=== PATIENT | female | born 1980 | race Caucasian/White ===

== ENCOUNTER 2021-02-20 22:03 | Emergency (ER) | payer OTHER ==
[~2021-02-20] VITALS: Ht 180.3 cm; Wt 100.9 kg
--- NOTE | 2021-02-20 22:16 | PHYS DOC ---
Adult General HPI HPI Patient is a 40-year-old female presents with a chief complaint of Covid vaccine adverse reaction. States she got her Coumadin dose this morning and shortly after got some hives on bilateral forearms, that are itching. States she did not take any medications or call her primary care physician. Denies any headache, changes in vision, pain or trouble swallowing, chest pain, shortness of breath, wheezing, abdominal pain, nausea, vomiting, diarrhea. Denies any numbness/weakness/tingling or trouble sitting, standing or walking. Review of Systems Review of Systems Review of systems otherwise unremarkable except noted in HPI Physical Exam Physical Exam Constitutional: Well developed, well nourished, no acute distress, non-toxic bijan earance. [] HENT: Normocephalic, atraumatic, bilateral external ears normal, oropharynx moist, no oral exudates, nose normal. [] Eyes: PERRLA, EOMI, conjunctiva normal, no discharge. [] Neck: Normal range of motion, no tenderness, supple, no stridor. [] Cardiovascular:Heart rate regular rhythm, no murmur [] Lungs & Thorax: Bilateral breath sounds clear to auscultation [] Abdomen: Bowel sounds normal, soft, no tenderness, no masses, no pulsatile masses. [] Skin: Urticarial rash on forearms Back: No tenderness, no CVA tenderness. [] Extremities: No tenderness, no cyanosis, no clubbing, ROM intact, no edema. [] Neurologic: Alert and oriented X 3, normal motor function, normal sensory function, no focal deficits noted. [] Psychologic: Affect normal, judgement normal, mood normal. [] EKG EKG [] Radiology/Procedures Radiology/Procedures [] Heart Score C/O Chest Pain: No Risk Factors: Risk Factors: DM, Current or recent (<one month) smoker, HTN, HLP, family history of CAD, obesity. Risk Scores: Risk Factors: DM, Current or recent (<one month) smoker, HTN, HLP, family history of CAD, obesity. Course & Med Decision Making Course & Med Decision Making Patient is a 40-year-old female presents with complaint of Covid vaccine adverse reaction Vital signs not concerning. Physical exam noted above. Given steroids and Benadryl. Discussed all findings with patient. Advised on symptomatic treatment at home. Advised to call primary care physician in the morning to update. Gave return precautions to the ED. Patient grateful, verbalized understanding and agreed with plan of discharge. [] Dragon Disclaimer Dragon Disclaimer This electronic medical record was generated, in whole or in part, using a voice recognition dictation system. Departure Departure: Impression: Primary Impression: Hives Disposition: HOME / SELF CARE / HOMELESS Condition: GOOD Referrals: CHICO RODRIGUEZ (PCP) Patient Instructions: Allergies, Generic, Drug Allergy Additional Instructions: Thanks for coming into the emergency department tonight and allowing us to take care of you. Please read the attached information carefully to go over things we discussed. Please call your primary care physician in the morning to update on your ED visit and set up a follow-up as soon as possible to discuss further evaluation and treatment. You can use Benadryl as needed for itching every 6 hours at home. Please come back to the ED with new or concerning symptoms as discussed. DEYSI PHAM MD Feb 20, 2021 22:16
[2021-02-20 22:30] VITALS: BP 149/53
[2021-02-20] MEDS ORDERED: diphenhydrAMINE HCL 25 MG CAPSULE PO ONE (22:45)
[2021-02-20] MEDS ORDERED: DEXAMETHASONE 4 MG TABLET PO ONE (23:30)
== END 2021-02-20 22:57 | disposition home or self-care (01) ==
LOC: ER 22:03
DX: T88.1XXA Other complications following immunization, not elsewhere classified, initial encounter (principal); L50.8 Other urticaria; Y82.8 Other medical devices associated with adverse incidents
CPT/HCPCS: 99282; Q0163

== ENCOUNTER 2021-02-22 12:04 | Emergency (ER) | payer OTHER ==
[~2021-02-22] VITALS: Ht 180.3 cm; Wt 100.5 kg
[2021-02-22 12:19] VITALS: BP 117/69
--- NOTE | 2021-02-22 13:00 | PHYS DOC ---
Past History Past Surgical History: Cholecystectomy, Other Additional Past Surgical Histo: endometriosis (TABITHA MONTELONGO) Alcohol Use: Occasionally (TABITHA MONTELONGO) General Adult EDM: Chief Complaint: SKIN RASH/ABSCESS HPI: HPI: Patient is a 40 year old female who presents with head to toe flushing and urticaria. Patient reports she had her Pfizer Covid vaccine on , and visited the department that evening for similar symptoms. Patient states that today's episode was worse than 2 days ago. She reports her symptoms have improved since coming to the emergency room. Her symptoms include head to toe redness, flushing, urticarial sensation. She also states that her face felt very hot. In her visit to the ER 2 days ago, she was given 50 mg Benadryl. She felt much better yesterday. Last night, she took 25 mg Benadryl. Patient has no other complaints at this time. (TABITHA MONTELONGO) Review of Systems: Review of Systems: ROS negative except as mentioned in HPI. (TABITHA MONTELONGO) Allergies: Allergies: Allergies Coded Allergies Type Severity Reaction Last Updated Verified erythromycin base Allergy Severe severe abdominal pain 02/22/21 Yes (TABITHA MONTELONGO) Physical Exam: PE: Constitutional: Well developed, well nourished, no acute distress, non-toxic appearance. [] HENT: Normocephalic, atraumatic, bilateral external ears normal, oropharynx moist, nose normal. Eyes: Conjunctiva normal, no discharge. Cardiovascular:Heart rate regular rhythm, no murmur. Lungs & Thorax: Bilateral breath sounds clear to auscultation. Skin: Diffuse erythematous, blanching rash without raised lesions. Skin otherwise warm, dry. Extremities: No tenderness, no cyanosis, no clubbing, ROM intact, no edema. Neurologic: Alert and oriented x3, normal motor function, normal sensory function, no focal deficits noted. (TABITHA MONTELONGO) Current Patient Data: Vital Signs: Vital Signs Date Time Temp Pulse Resp B/P (MAP) Pulse Ox O2 Delivery O2 Flow Rate FiO2 02/22/21 12:19 97.6 61 18 117/69 (85) 100 Room Air (TABITHA MONTELONGO) Heart Score: C/O Chest Pain: No (TABITHA MONTELONGO) Course & Med Decision Making: Course & Med Decision Making Pertinent Labs and Imaging studies reviewed. (See chart for details) Patient presentation is nearly identical to her presentation 2 days ago. Risk versus benefit of additional testing or laboratory work was discussed with the patient. Both the patient and I agree that there is not much benefit to performing laboratory testing at this time. As her symptoms were more or less resolved yesterday after 50 mg of Benadryl the night before, she is advised to continue taking 50 mg of Benadryl at night. She will also add a daily antihistamine of her choice (Claritin, Sangeetha, Zyrtec) in effort to prevent her symptoms from recurring. Patient is agreeable to discharge plan. (TABITHA MONTELONGO) Dragon Disclaimer: Dragon Disclaimer: This electronic medical record was generated, in whole or in part, using a voice recognition dictation system. (TABITHA MONTELONGO) Attending Co-Sign The patient was seen and interviewed as well as examined at the bedside. The chart was reviewed. The case was discussed. Agree with the plan of care. (SMAY RUFFIN DO) Departure Departure: Impression: Primary Impression: Urticaria of entire body Disposition: HOME / SELF CARE / HOMELESS Condition: STABLE Referrals: CHICO RODRIGUEZ-BC (PCP) Patient Instructions: Pruritus, Rash, [id number] Additional Instructions: You may follow-up with your primary care provider should your symptoms recur with new treatment plan. You may also want to obtain a referral for an contracting manager. Please return to the emergency department if your symptoms do not improve. TABITHA MONTELONGO Feb 22, 2021 13:00 SAMY RUFFIN DO Feb 23, 2021 06:16
== END 2021-02-22 13:17 | disposition home or self-care (01) ==
LOC: ER 12:04
DX: L50.9 Urticaria, unspecified (principal); Z90.49 Acquired absence of other specified parts of digestive tract
CPT/HCPCS: 99282